=== PATIENT | male | born 1965 | race Caucasian/White ===

== ENCOUNTER 2024-07-02 06:16 | Day surgery (SDC) | payer OTHER ==
[2024-07-02] MEDS: Lactated Ringers 1,000 ML IV SCH (06:55)
[2024-07-02] MEDS ORDERED: Midazolam 1 MG/ML 2 ML SDV ONE (07:07)
[2024-07-02] MEDS ORDERED: Propofol 200 MG/20 ML SDV ONE ×2 (07:08→07:49)
[2024-07-02] MEDS ORDERED: fentaNYL 50 MCG/ML SDV ONE (07:08)
[2024-07-02 08:39] VITALS: BP 151/73; PULSE 45
== END 2024-07-02 09:00 | disposition home or self-care (01) ==
LOC: JP.SDS 06:16
PROVIDERS: ATTEND Surgery
DX: Z12.11 Encounter for screening for malignant neoplasm of colon (principal); D12.6 Benign neoplasm of colon, unspecified; K57.30 Diverticulosis of large intestine without perforation or abscess without bleeding; E78.5 Hyperlipidemia, unspecified; I12.9 Hypertensive chronic kidney disease with stage 1 through stage 4 chronic kidney disease, or unspecified chronic kidney disease; N18.9 Chronic kidney disease, unspecified; Z88.1 Allergy status to other antibiotic agents; Z80.0 Family history of malignant neoplasm of digestive organs
CPT/HCPCS: 00811; 45385; J2250; J2704; J3010; J7120; 88305